=== PATIENT | male | born 1995 | race African-American/Black ===

== ENCOUNTER 2017-11-03 23:43 | Emergency (ER) | payer OTHER ==
[~2017-11-03] VITALS: Ht 185.4 cm; Wt 70.0 kg
[~2017-11-03 23:43] MED LIST: ALBUTEROL0.5 % IN; AMOXICILLIN500 MG PO; AMOXIL500 M1 OR; ATUSS DS OR; BACTRIM DS1 TAB PO; NAPROSYN500 MG PO; NO; ONDANSETRON4 MG PO; PENICILLN VK500 MG OR; PROMETHAZINE12.5 M1 RE; ULTRAM50 MG OR
[2017-11-04 01:05] VITALS: BP 128/68
== END 2017-11-04 01:07 | disposition home or self-care (01) | DRG 605 ==
LOC: ED 23:43
PROC: 0HQFXZZ Repair Right Hand Skin, External Approach (ICD-10-PCS; principal; 2017-11-04)
DX: S61.212A Laceration without foreign body of right middle finger without damage to nail, initial encounter (principal); W22.8XXA Striking against or struck by other objects, initial encounter; Y93.89 Activity, other specified; Y92.89 Other specified places as the place of occurrence of the external cause

== ENCOUNTER 2017-11-08 17:20 | Emergency (ER) | payer SELFPAY ==
[2017-11-09] MEDS ORDERED: AMOXICILLIN500 MG PO (02:29)
== END 2017-11-08 17:25 | disposition left against medical advice (07) | DRG 951 ==
LOC: ED 17:20 → LWOBS 17:25
DX: Z91.19 Patient's noncompliance with other medical treatment and regimen (principal)

== ENCOUNTER 2017-11-09 02:15 | Emergency (ER) | payer OTHER ==
[~2017-11-09] VITALS: Ht 185.4 cm; Wt 74.5 kg
[2017-11-09] MEDS ORDERED: AMOXICILLIN500 MG PO (02:29)
[2017-11-09 02:36] VITALS: BP 132/72
== END 2017-11-09 02:49 | disposition home or self-care (01) | DRG 950 ==
LOC: ED 02:15
PROC: 2W3JX1Z Immobilization of Right Finger using Splint (ICD-10-PCS; principal; 2017-11-09)
DX: S61.212D Laceration without foreign body of right middle finger without damage to nail, subsequent encounter (principal)

== ENCOUNTER 2018-07-05 22:06 | Emergency (ER) | payer SELFPAY ==
[~2018-07-05] VITALS: Ht 185.4 cm; Wt 77.0 kg
[2018-07-05] MEDS ORDERED: NAPRELAN375 MG PO (23:44)
[2018-07-06 00:03] VITALS: BP 115/76
== END 2018-07-06 00:15 | disposition home or self-care (01) | DRG 563 ==
LOC: ED 22:06
DX: S93.401A Sprain of unspecified ligament of right ankle, initial encounter (principal); X50.0XXA Overexertion from strenuous movement or load, initial encounter; Y93.67 Activity, basketball; Y92.310 Basketball court as the place of occurrence of the external cause

== ENCOUNTER 2018-10-25 00:35 | Emergency (ER) | payer SELFPAY ==
[~2018-10-25] VITALS: Ht 185.4 cm; Wt 72.7 kg
[~2018-10-25 00:35] MED LIST changes: +NAPRELAN375 MG PO
[2018-10-25 01:30] VITALS: BP 134/71
== END 2018-10-25 01:32 | disposition home or self-care (01) | DRG 563 ==
LOC: ED 00:35
DX: S63.91XA Sprain of unspecified part of right wrist and hand, initial encounter (principal); W21.05XA Struck by basketball, initial encounter